=== PATIENT | male | born 1970 | race African-American/Black ===

== ENCOUNTER 2018-04-29 13:07 | Emergency (ER) | payer OTHER ==
[2018-04-29 13:20] VITALS: BP 134/84; PULSE 74; TEMP 98.5; BMI 43.7
--- NOTE | 2018-04-29 13:46 | PDOC ---
History of Present Illness - General Chief Complaint: Pain Stated Complaint: STOMACH PAIN History Source: Patient - History of Present Illness Initial Comments: The patient is a 47M with a history of HTN and T2DM who presents with 2 days of constant, non-radiating, cramping periumbilical pain. He reports that the pain started shortly after dinner yesterday, is associated with nausea, and no others around him have had similar symptoms. He denies fever, emesis, diarrhea, blood in his stool, pain with urination or blood in his urine. He has allergies to seafood, nuts, and 'fruits' but had none of these for dinner. 04/29/18 14:02 Past History - Past Medical History Allergies/Adverse Reactions: Allergies Allergy/AdvReac Type Severity Reaction Status Date / Time iodine [Iodine] Allergy Verified 04/29/18 13:16 Shellfish Allergy Verified 04/29/18 13:16 Home Medications: Ambulatory Orders Amlodipine Besylate [Norvasc -] 10 mg PO DAILY 04/05/16 Losartan 50Mg/Hctz 12.5MG [Hyzaar -] 1 tab PO BID 10/04/16 metFORMIN HCL [Glucophage -] 500 mg PO BID #28 tablet 10/04/16 Pantoprazole Sodium [Protonix] 40 mg PO DAILY #30 tablet.dr 10/06/16 Ranitidine HCl [Zantac] 150 mg PO BID PRN #20 tablet 10/06/16 Acetaminophen [Tylenol] 650 mg PO QID PRN 10 Days #80 capsule 04/29/18 Famotidine [Pepcid -] 20 mg PO DAILY #7 tablet 04/29/18 Ibuprofen 400 mg PO TID PRN 10 Days #30 tablet 04/29/18 Anemia: No Asthma: No Cancer: No Cardiac Disorders: No CVA: No COPD: No Dementia: No Diabetes: No Dialysis: No GI Disorders: No Disorders: No HTN: Yes Hypercholesterolemia: No Kidney Stones: No Liver Disease: No Seizures: No Thyroid Disease: No - Suicide/Smoking/Psychosocial Hx Smoking Status: No Smoking History: Never smoked Number of Cigarettes Smoked Daily: 0 Information on smoking cessation initiated: No Hx Alcohol Use: No Drug/Substance Use Hx: No Substance Use Type: None Hx Substance Use Treatment: No Review of Systems - Review of Systems Comments:: GENERAL/CONSTITUTIONAL: No fever or chills. No weakness. HEAD, EYES, EARS, NOSE AND THROAT: No change in vision. No ear pain or discharge. No sore throat. CARDIOVASCULAR: No chest pain or shortness of breath RESPIRATORY: No cough, wheezing, or hemoptysis. GASTROINTESTINAL: per HPI GENITOURINARY: No dysuria, frequency, or change in urination. MUSCULOSKELETAL: No joint or muscle swelling or pain. No neck or back pain. SKIN: No rash NEUROLOGIC: No headache, loss of consciousness, or change in strength/sensation. ENDOCRINE: No increased thirst. No abnormal weight change HEMATOLOGIC/LYMPHATIC: No anemia, easy bleeding, or history of blood clots. ALLERGIC/IMMUNOLOGIC: No hives or skin allergy. 04/29/18 14:07 *Physical Exam - Vital Signs Last Vital Signs Temp Pulse Resp BP Pulse Ox 98.5 F 74 17 134/84 100 04/29/18 13:17 04/29/18 13:17 04/29/18 13:17 04/29/18 13:17 04/29/18 13:17 - Physical Exam Comments: GENERAL: Awake, alert, and fully oriented, in no acute distress HEAD: No signs of trauma, normocephalic, atraumatic EYES: PERRLA, EOMI, sclera anicteric, conjunctiva clear ENT: Auricles normal inspection, hearing grossly normal, nares patent, oropharynx clear without exudates. Moist mucosa NECK: Normal ROM, supple, no lymphadenopathy, JVD, or masses LUNGS: No distress, speaks full sentences, clear to auscultation bilaterally HEART: Regular rate and rhythm, normal S1 and S2, no murmurs appreciated ABDOMEN: Soft, protuberent/obese, epigastric TTP, RLQ TTP that refers to epigastric region with mild rebound; normoactive bowel sounds. EXTREMITIES : Normal inspection, Normal range of motion, no edema. No clubbing or cyanosis. NEUROLOGICAL: Cranial nerves II through XII grossly intact. Normal speech, normal gait, no focal sensorimotor deficits SKIN: Warm, Dry, normal turgor, no rashes or lesions noted 04/29/18 15:19 ED Treatment Course - LABORATORY CBC & Chemistry Diagram: 04/29/18 14:25 04/29/18 14:25 Medical Decision Making - Medical Decision Making The patient is a 47M with a history of HTN and T2DM who presents with 2 days of non-radiating, cramping periumbilical pain Ddx: gastritis, diverticulitis, colitis; less likely nephrolithiasis, UTI, intra -abdominal infection; not likely but considered ACS, vascular dilation/ dissection, enteric perforation ED Course The patient was given Zofran 4mg IV once for nausea with some improvement CMP, CBC, Lipase, UA CT A&P w/o IV contrast CBC without leukocytosis; Lipase not elevated Pepcid 20mg IV x1 for likely gastritis 1L NS IV once Patient's pain and nausea improved after Tylenol, zofran, and pepcid CT with small fat containing periumbilical hernia; diverticulosis without evidence of diverticulitis or other acute intra-abdominal pathology Dispo: Home with PCP and GI follow up Rx for Tylenol, Ibuprofen, and Pepcid 04/29/18 15:23 *DC/Admit/Observation/Transfer Diagnosis at time of Disposition: Umbilical hernia without obstruction and without gangrene Abdominal pain Qualifiers: Abdominal location: periumbilical Qualified Code(s): R10.33 - Periumbilical pain Gastritis Qualifiers: Gastritis type: unspecified gastritis Chronicity: acute Gastritis bleeding: without bleeding Qualified Code(s): K29.00 - Acute gastritis without bleeding - Discharge Dispostion Disposition: HOME Condition at time of disposition: Stable Decision to Admit order: No - Prescriptions Prescriptions: Acetaminophen [Tylenol] 650 mg PO QID PRN 10 Days #80 capsule PRN Reason: Pain Famotidine [Pepcid -] 20 mg PO DAILY #7 tablet Ibuprofen 400 mg PO TID PRN 10 Days #30 tablet PRN Reason: Pain - Referrals Referrals: Josse Barkley MD [Primary Care Provider] - Hugo Curtis MD [Staff Physician] - - Patient Instructions Printed Discharge Instructions: Gastritis (Alternative Therapy), Gastritis, Abdominal Hernia Additional Instructions: You were seen today for abdominal pain. You were evaluated and found to have diverticulosis without diverticulitis and a small [id number] umbilical hernia. You were treated with Zofran for your nausea as well as Pepcid and Tylenol for your abdominal pain. Please refer to your discharge packets for further information and followup with your primary care physician. You were also given a referral to a [facility] for further evaluation. Return to the Emergency Department if you have fevers, worsening pain, vomitting, or any other new or concerning symptoms. - Post Discharge Activity
[2018-04-29] MEDS ORDERED: ONDANSETRON 4 MG/2 ML VIAL IVPUSH ONE (13:59)
[2018-04-29] MEDS ORDERED: ACETAMINOPHEN 1000 MG/100 ML VIAL (NON FORMULARY) IVPB ONE (13:59)
[2018-04-29] MEDS ORDERED: ACETAMINOPHEN INJECTION 100 ML IVPB ONE (14:23)
[2018-04-29] MEDS ORDERED: ONDANSETRON 4 MG/2 ML VIAL ONE (14:23)
[2018-04-29 14:48] LABS: HEMATOCRIT 41.1 % (35.4-49); HEMOGLOBIN 13.8 GM/dL (11.7-16.9); MCH 31.2 pg (25.7-33.7); MCHC 33.7 g/dl (32.0-35.9); MEAN CELL VOLUME 92.5 fl (80-96); MEAN PLT VOLUME 8.5 fl (7.5-11.1); PLATELET COUNT 224 K/MM3 (134-434); RBC 4.44 M/mm3 (4.00-5.60); RDW 13.5 % (11.9-15.9); WHITE BLOOD COUNT 7.2 K/mm3 (4.0-10.0)
[2018-04-29] MEDS ORDERED: SODIUM CHLORIDE 0.9% 500 ML INFUS.BAG IV ONE (14:52)
[2018-04-29] MEDS ORDERED: FAMOTIDINE 20 MG/50 ML IVPB 20 MG/50 ML MG IVPB ONE ×2 (14:52→15:04)
[2018-04-29 14:56] LABS: ALBUMIN 3.5 g/dl (3.4-5.0); ALK PHOS 77 U/L (45-117); ANION GAP 6 (8-16); BILIRUBIN,TOTAL 0.4 mg/dL (0.2-1.0); BLOOD UREA NITROGEN 9 mg/dL (7-18); CALCIUM 9.2 mg/dL (8.5-10.1); CHLORIDE 100 mmol/L (98-107); CO2 32 mmol/L (21-32); GLUCOSE,RANDOM 148 mg/dL (74-106); LIPASE 64 U/L (73-393); POTASSIUM 3.8 mmol/L (3.5-5.1); SGOT/AST 24 U/L (15-37); SGPT/ALT 34 U/L (12-78); SODIUM 138 mmol/L (136-145); TOT PROT 7.5 g/dl (6.4-8.2)
--- NOTE | 2018-04-29 15:33 | PDOC ---
Attending Attestation - Resident Resident Name: Sriram Gray - ED Attending Attestation I have performed the following: I have examined & evaluated the patient, The case was reviewed & discussed with the resident, I agree w/resident's findings & plan - HPI HPI: 04/29/18 14:53 47y/o M hypertension, diabetes presents with persistent periumbilical abdominal pain since last night after eating a beef sandwich. Nausea and anorexia but no vomiting, no rectal output since yesterday either. No abd surgical history. No urinary complaints, no fevers or chills. No recent travel, no recent antibiotics, never had an endoscopy or colonoscopy. - Physicial Exam PE: 04/29/18 15:32 Afebrile Generally well-appearing Abdomen is obese, soft, nondistended. Tender predominantly in the epigastric region with some rebound to the periumbilical region, now sounds are within normal limits, no CVA tenderness, no palpable hernias. - Medical Decision Making 04/29/18 15:33 47-year-old male with worsening periumbilical pain since last night, exam localizes to the periumbilical/epigastric region. Question gastritis, question colitis/diverticulitis of the transverse colon, less likely enteritis. Labs, urinalysis CT of the abdomen and pelvis Reassess
[2018-04-29 17:31] LABS: URINE APPEARANCE CLEAR; URINE BILIRUBIN NEGATIVE (<2.0 mg/dL); URINE COLOR LTYELLOW; URINE GLUCOSE (UA) NEGATIVE (NEGATIVE); URINE KETONE NEGATIVE (NEGATIVE); URINE LEUK ESTERASE NEGATIVE (NEGATIVE); URINE NITRITE NEGATIVE (NEGATIVE); URINE PROTEIN NEGATIVE (NEGATIVE); URINE UROBILINOGEN NEGATIVE mg/dL (0.2-1.0)
== END 2018-04-29 17:46 | disposition home or self-care (01) ==
LOC: JER 13:07
PROC: 3E033GC Introduction of Other Therapeutic Substance into Peripheral Vein, Percutaneous Approach (ICD-10-PCS; principal; 2018-04-29)
PROC: 3E033GC Introduction of Other Therapeutic Substance into Peripheral Vein, Percutaneous Approach (ICD-10-PCS; 2018-04-29)
PROC: 3E033NZ Introduction of Analgesics, Hypnotics, Sedatives into Peripheral Vein, Percutaneous Approach (ICD-10-PCS; 2018-04-29)
DX: K42.9 Umbilical hernia without obstruction or gangrene (principal); K29.00 Acute gastritis without bleeding; I10 Essential (primary) hypertension; E11.9 Type 2 diabetes mellitus without complications; Z79.84 Long term (current) use of oral hypoglycemic drugs
CPT/HCPCS: 36415; 74176-TC; 80053; 81003; 83690; 85027; 96365; 96375; 99282-25; J0131

== ENCOUNTER 2018-06-20 17:34 | Emergency (ER) | payer OTHER ==
[2018-06-20 18:04] VITALS: BP 141/86; PULSE 96; TEMP 99.1; BMI 42.3
[2018-06-20] MEDS ORDERED: IBUPROFEN 600 MG TABLET (FP) PO ONE ×2 (18:29)
--- NOTE | 2018-06-20 18:37 | PDOC ---
History of Present Illness - General Chief Complaint: Cold Symptoms Stated Complaint: COLD SYMPTOMS Time Seen by Provider: 06/20/18 18:21 History Source: Patient Exam Limitations: No Limitations - History of Present Illness Initial Comments: 06/20/18 18:34 47-year-old male with and also volunteers at a homeless correction presents with 4 days of myalgia, chills, sore throat and dry cough. Patient denies chest pain, shortness of breath, nausea, difficulty swallowing recent travel, recent illness. Patient states BGM has been in the 100s for the past week. Patient states took nothing for the above and decided come to the ER today with symptoms continued. Timing/Duration: reports: just prior to arrival Severity: reports: mild Possible Cause: Yes: no prior episodes Associated Symptoms: reports: cough, fever/chills, sore throat Past History - Travel Traveled outside of the country in the last 30 days: No - Past Medical History Allergies/Adverse Reactions: Allergies Allergy/AdvReac Type Severity Reaction Status Date / Time iodine [Iodine] Allergy Verified 06/20/18 18:01 Shellfish Allergy Verified 06/20/18 18:01 Home Medications: Ambulatory Orders Amlodipine Besylate [Norvasc -] 10 mg PO DAILY 04/05/16 Losartan 50Mg/Hctz 12.5MG [Hyzaar -] 1 tab PO BID 10/04/16 metFORMIN HCL [Glucophage -] 500 mg PO BID #28 tablet 10/04/16 Anemia: No Asthma: No Cancer: No Cardiac Disorders: No CVA: No COPD: No Dementia: No Diabetes: No Dialysis: No GI Disorders: No Disorders: No HTN: Yes Hypercholesterolemia: No Kidney Stones: No Liver Disease: No Seizures: No Thyroid Disease: No - Suicide/Smoking/Psychosocial Hx Smoking Status: No Smoking History: Never smoked Number of Cigarettes Smoked Daily: 0 Hx Alcohol Use: No Drug/Substance Use Hx: No Substance Use Type: None Hx Substance Use Treatment: No Patient Lives Alone: No Lives with/in: spouse/SO Review of Systems - Review of Systems Able to Perform ROS?: No Constitutional: Yes: Chills HEENTM: Yes: Throat Pain Respiratory: Yes: Cough Cardiac (ROS): No: Symptoms Reported ABD/GI: No: Symptoms Reported : No: Symptoms Reported Musculoskeletal: Yes: Joint Pain, Muscle Pain Integumentary: No: Symptoms Reported Neurological: No: Symptoms reported Endocrine: No: Symptoms Reported Hematologic/Lymphatic: No: Symptoms Reported *Physical Exam - Vital Signs Last Vital Signs Temp Pulse Resp BP Pulse Ox 99.1 F 96 H 20 141/86 97 06/20/18 18:01 06/20/18 18:01 06/20/18 18:01 06/20/18 18:01 06/20/18 18:01 - Physical Exam General Appearance: Yes: Nourished, Appropriately Dressed. No: Apparent Distress HEENT: positive: EOMI, OZ, TMs Normal, Pharynx Normal. negative: Pale Conjunctivae Neck: positive: Supple Respiratory/Chest: positive: Lungs Clear, Normal Breath Sounds. negative: Respiratory Distress, Accessory Muscle Use Cardiovascular: positive: Regular Rhythm, Regular Rate. negative: Murmur Gastrointestinal/Abdominal: positive: Soft. negative: Tenderness Extremity: positive: Normal Capillary Refill. negative: Pedal Edema Integumentary: positive: Normal Color, Warm, Moist Neurologic: positive: Motor Strength 5/5 (ambulatory) Medical Decision Making - Medical Decision Making 06/20/18 18:37 Patient with URI symptoms temperature 99.2 and a heart rate of 96. 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 Patient on exam had no acute findings. Patient was ordered for influenza, rapid strep and given Motrin. 06/20/18 19:34 Rapid strep and influenza negative. Patient will be sent home with supportive care suctions including pushing fluids and taking Motrin for discomfort. *DC/Admit/Observation/Transfer Diagnosis at time of Disposition: Viral syndrome - Discharge Dispostion Disposition: HOME Condition at time of disposition: Good - Referrals - Patient Instructions Printed Discharge Instructions: DI for Viral Upper Respiratory Infection -- Adult Additional Instructions: At this time your strep and influenza were negative. I do recommend taking Motrin 600 mg every 8 hours as needed for discomfort and fever if you develop one. Please drink plenty of fluids and rest as needed. - Post Discharge Activity
== END 2018-06-20 19:36 | disposition home or self-care (01) ==
LOC: JERFT 17:34
DX: J06.9 Acute upper respiratory infection, unspecified (principal); B97.89 Other viral agents as the cause of diseases classified elsewhere; I10 Essential (primary) hypertension
CPT/HCPCS: 87070; 87430; 87804; 99281-25

== ENCOUNTER 2018-09-22 11:10 | Emergency (ER) | payer OTHER ==
[2018-09-22 11:15] VITALS: BP 138/86; PULSE 75; TEMP 98.3; BMI 43.2
[2018-09-22] MEDS ORDERED: ACETAMINOPHEN 325 MG TABLET (FP) PO ONE (11:27)
[2018-09-22] MEDS ORDERED: ACETAMINOPHEN 325 MG TABLET (FP) ONE (11:31)
--- NOTE | 2018-09-22 11:33 | PDOC ---
History of Present Illness - General Chief Complaint: Sore Throat Stated Complaint: COLD SYMPTOMS Time Seen by Provider: 09/22/18 11:16 History Source: Patient Exam Limitations: No Limitations - History of Present Illness Initial Comments: 09/22/18 11:27 47 yr male with history of HTN, DM, obesity presents with sore throat cough nasal congestion headache no fever no chills started yesterday. Past History - Past Medical History Allergies/Adverse Reactions: Allergies Allergy/AdvReac Type Severity Reaction Status Date / Time iodine [Iodine] Allergy Verified 09/22/18 11:14 Shellfish Allergy Verified 09/22/18 11:14 Home Medications: Ambulatory Orders Amlodipine Besylate [Norvasc -] 10 mg PO DAILY 04/05/16 Losartan 50Mg/Hctz 12.5MG [Hyzaar -] 1 tab PO BID 10/04/16 metFORMIN HCL [Glucophage -] 500 mg PO BID #28 tablet 10/04/16 Anemia: No Asthma: No Cancer: No Cardiac Disorders: No CVA: No COPD: No Dementia: No Diabetes: No Dialysis: No GI Disorders: No Disorders: No HTN: Yes Hypercholesterolemia: No Kidney Stones: No Liver Disease: No Seizures: No Thyroid Disease: No - Suicide/Smoking/Psychosocial Hx Smoking Status: No Smoking History: Never smoked Number of Cigarettes Smoked Daily: 0 Hx Alcohol Use: No Drug/Substance Use Hx: No Substance Use Type: None Hx Substance Use Treatment: No Review of Systems - Review of Systems Able to Perform ROS?: Yes Is the patient limited Indonesian proficient: No Constitutional: No: Symptoms Reported HEENTM: Yes: Symptoms Reported, Nose Congestion, Throat Pain Respiratory: Yes: Cough Cardiac (ROS): No: Symptoms Reported ABD/GI: No: Symptoms Reported : No: Symptoms Reported Musculoskeletal: No: Symptoms Reported Integumentary: No: Symptoms Reported *Physical Exam - Vital Signs Last Vital Signs Temp Pulse Resp BP Pulse Ox 98.3 F 75 18 138/86 99 09/22/18 11:11 09/22/18 11:11 09/22/18 11:11 09/22/18 11:11 09/22/18 11:11 - Physical Exam General Appearance: Yes: Nourished, Appropriately Dressed HEENT: positive: EOMI, OZ, Nasal Congestion. negative: Pharyngeal Erythema, Rhinorrhea Neck: positive: Supple Respiratory/Chest: positive: Lungs Clear, Normal Breath Sounds. negative: Chest Tender Cardiovascular: positive: Regular Rhythm, Regular Rate Gastrointestinal/Abdominal: positive: Normal Bowel Sounds, Soft Extremity: positive: Normal Capillary Refill, Normal Inspection, Normal Range of Motion Integumentary: positive: Normal Color, Dry, Warm Neurologic: positive: Fully Oriented, Alert, Normal Mood/Affect, Normal Response , Motor Strength 5/5 Moderate Sedation - Procedure Monitoring Vital Signs: Procedure Monitoring Vital Signs Temperature 98.3 F 09/22/18 11:11 Pulse Rate 75 09/22/18 11:11 Respiratory Rate 18 09/22/18 11:11 Blood Pressure 138/86 09/22/18 11:11 O2 Sat by Pulse Oximetry (%) 99 09/22/18 11:11 Medical Decision Making - Medical Decision Making 09/22/18 11:29 cc: sore throat cough nasal congestion no fever neg abd pain neg nvd will check for strep tylenol now lungs are CTA *DC/Admit/Observation/Transfer Diagnosis at time of Disposition: Viral upper respiratory tract infection with cough - Discharge Dispostion Disposition: HOME Condition at time of disposition: Good - Referrals Referrals: Josse Barkley MD [Primary Care Provider] - - Patient Instructions Additional Instructions: drink pleanty of fluids to stay well hydrated vicks chest rub to throat chest pleanty of tea with honey and lemon, salt water gargles for sore throat use over the counter vicks nasal spray for congestion you can also use [place] cough and cold medicine for patients on high blood pressure medications follow with your doctor SUNDAY if any worsening symptoms - Post Discharge Activity
== END 2018-09-22 11:46 | disposition home or self-care (01) ==
LOC: JERFT 11:10
DX: J06.9 Acute upper respiratory infection, unspecified (principal); B97.89 Other viral agents as the cause of diseases classified elsewhere; R05 Cough
CPT/HCPCS: 87070; 87880; 99281-25

== ENCOUNTER 2019-09-10 09:17 | Emergency (ER) | payer OTHER ==
[2019-09-10 09:27] VITALS: BP 154/86; PULSE 83; TEMP 98.2; BMI 41.8
--- NOTE | 2019-09-10 10:08 | PDOC ---
History of Present Illness - General Chief Complaint: Cold Symptoms Stated Complaint: FLU LIKE SYMPTOMS Time Seen by Provider: 09/10/19 09:28 History Source: Patient - History of Present Illness Timing/Duration: reports: yesterday Past History - Past Medical History Allergies/Adverse Reactions: Allergies Allergy/AdvReac Type Severity Reaction Status Date / Time iodine [Iodine] Allergy Verified 09/10/19 09:27 Shellfish Allergy Verified 09/10/19 09:27 Home Medications: Ambulatory Orders Amlodipine Besylate [Norvasc -] 10 mg PO DAILY 04/05/16 Losartan 50Mg/Hctz 12.5MG [Hyzaar -] 1 tab PO BID 10/04/16 metFORMIN HCL [Glucophage -] 500 mg PO BID #28 tablet 10/04/16 Anemia: No Asthma: No Cancer: No Cardiac Disorders: No CVA: No COPD: No Dementia: No Diabetes: Yes Dialysis: No GI Disorders: No Disorders: No HTN: Yes Hypercholesterolemia: No Kidney Stones: No Liver Disease: No Seizures: No Thyroid Disease: No - Psycho Social/Smoking Cessation Hx Smoking Status: No Smoking History: Never smoked Number of Cigarettes Smoked Daily: 0 Information on smoking cessation initiated: No Hx Alcohol Use: No Drug/Substance Use Hx: No Substance Use Type: None Hx Substance Use Treatment: No Review of Systems - Review of Systems Constitutional: Yes: Malaise. No: Chills, Fever HEENTM: Yes: Throat Pain Respiratory: Yes: Cough. No: Shortness of Breath Cardiac (ROS): No: Chest Pain *Physical Exam - Vital Signs Last Vital Signs Temp Pulse Resp BP Pulse Ox 98.2 F 83 19 154/86 99 09/10/19 09:25 09/10/19 09:25 09/10/19 09:25 09/10/19 09:25 09/10/19 09:25 - Physical Exam General Appearance: Yes: Appropriately Dressed. No: Apparent Distress HEENT: positive: Normal ENT Inspection, Normal Voice, TMs Normal, Pharynx Normal. negative: Scleral Icterus (R), Scleral Icterus (L) Neck: positive: Supple. negative: Lymphadenopathy (R), Lymphadenopathy (L) Respiratory/Chest: positive: Lungs Clear, Normal Breath Sounds. negative: Respiratory Distress Cardiovascular: positive: Regular Rate, S1, S2 Integumentary: positive: Dry, Warm Neurologic: positive: Fully Oriented, Alert, Normal Mood/Affect Medical Decision Making - Medical Decision Making 09/10/19 10:07 48-year-old male history of hypertension and diabetes here with body aches with cough and sore throat since yesterday. No fever or chills. Concerned he might have the flu as did not get the flu vaccine per patient. No shortness of breath or chest pain see exam Viral illness Exam unremarkable Flu neg Dc w/ supportive tx 09/10/19 10:26 Discharge - Discharge Information Problems reviewed: Yes Clinical Impression/Diagnosis: Viral syndrome Condition: Stable Disposition: HOME - Follow up/Referral Referrals: Josse Barkley MD [Primary Care Provider] - - Patient Discharge Instructions Additional Instructions: Most likely have a viral URI. There was no signs of infection and your flu test was negative. Rest drink plenty fluids and take [id number] meds for symptoms as needed - Post Discharge Activity Work/Back to School Note: Back to Work
== END 2019-09-10 10:28 | disposition home or self-care (01) ==
LOC: JERFT 09:17
DX: B34.9 Viral infection, unspecified (principal); Z91.013 Allergy to seafood; Z88.8 Allergy status to other drugs, medicaments and biological substances; I10 Essential (primary) hypertension; E11.9 Type 2 diabetes mellitus without complications
CPT/HCPCS: 87804; 99281-25

== ENCOUNTER 2021-05-25 10:08 | Emergency (ER) | payer OTHER ==
[2021-05-25 10:12] VITALS: BP 152/92; PULSE 69; TEMP 97.5; BMI 40.4
[2021-05-25] MEDS ORDERED: KETOROLAC TROMETHAMINE 30 MG/1 ML VIAL IM ONE (11:11)
== END 2021-05-25 11:40 | disposition home or self-care (01) ==
LOC: JER 10:08
PROC: 3E0233Z Introduction of Anti-inflammatory into Muscle, Percutaneous Approach (ICD-10-PCS; principal; 2021-05-25)
DX: S43.422A Sprain of left rotator cuff capsule, initial encounter (principal); X50.0XXA Overexertion from strenuous movement or load, initial encounter
CPT/HCPCS: 73030-TC-LT-FY; 99284-25